=== PATIENT | male | born 1970 | race Caucasian/White ===

== ENCOUNTER → 2021-08-27 07:17 | Outpatient (CLI) | payer BC, SELFPAY ==
--- NOTE | 2021-08-27 | CA_ITS ---
APPROVED REPORT Exam: Exercise Treadmill Technologist: Julieta Gonzáles, Ht: 5 ft 10 in Wt: 242 lbs BSA: 2.26 m2 HR: 64 bpm BP: 151/100 mmHg Rhythm: NSR, NORMAL Indications: CP Medical History Medical History: Hyperlipidemia Medications: Aspirin,,,,, Tricor,,,,, Crestor,,,,, Allergies: No known drug allergies Cardiac Risk Factors: Hyperlipidemia, FHX of CAD, Stress Test Details Test: Alejandro, Exercise stress testing was performed using a modified Alejandro protocol. HR Resting HR: 75 bpm Max Heart Rate (APMHR): 169.926044 bpm Max HR Achieved: 169 bpm Target HR (85% APMHR): 143.371613 bpm % of APMHR: 100.00 Recovery HR: 99 bpm BP Resting BP: 151/100 mmHg Max BP: 164/91 mmHg Recovery BP: 137.0/91.0 mmHg ECG Resting ECG: NSR, NORMAL Clinical Exercise duration: 09:30 min Highest Stage Achieved: Exercise capacity: 10.1 METs Stress ECG Conclusion PT EXERCISED 9:30 ON ALEJANDRO PROTOCOL, GOING INTO STAGE 4. MAX HR: 169 % OF PM: 100% MAX BP: 164/91 METS: 10.1 TEST STOPPED DUE TO: SOA, FATIGUE PT HAD NO CP. ALLOWING FOR MOTION ARTIFACT. THE ST RESPONSE TO EXERCISE IS WITHIN NORMAL. NORMAL GXT. MYOVIEW IMAGES REPORTED SEPARATELY. Test Summary Stage 3 03:00 14.0 3.4 152 . . . . REST 03:44 0.0 0.0 75 . 151/100 . . Stage 1 01:00 10.0 1.7 95 . . . . Stage 1 02:00 10.0 1.7 102 . . . . Stage 1 03:00 10.0 1.7 102 . 150/ 90 . . Stage 2 01:00 12.0 2.5 114 . . . . Stage 2 02:00 12.0 2.5 119 . . . . Stage 2 03:00 12.0 2.5 120 . 155/ 88 . . Stage 3 01:00 14.0 3.4 136 . . . . Stage 3 02:00 14.0 3.4 138 . . . . Stage 3 03:00 14.0 3.4 152 . . . . Stage 4 00:30 16.0 4.2 167 . . . Stop exercise at 09:30 RECOVERY 01:00 0.0 0.0 136 . . . . RECOVERY 02:00 0.0 0.0 122 . 148/ 75 . . RECOVERY 03:00 0.0 0.0 107 . 154/ 97 . . RECOVERY 04:00 0.0 0.0 104 . 154/ 97 . . RECOVERY 05:00 0.0 0.0 101 . 164/ 91 . . RECOVERY 06:00 0.0 0.0 103 . 128/ 92 . . RECOVERY 07:00 0.0 0.0 100 . 137/ 91 . . RECOVERY 07:13 0.0 0.0 98 . 137/ 91 . . Electronically signed by : Dmitry Arita MD 08/28/2021 10:46:12
--- NOTE | 2021-08-27 07:25 | NM_ITS ---
APPROVED REPORT Exam: Nuclear Stress Test Indication: chest pain Patient Location: Outpatient Stress Tech: Julieta Gonzáles [place] Tech:Gabriella BenitezDIOGO RT(R)(N) Ht: 5 ft 10 in Wt: 240 lbs HR: 64 bpm BP: 151/100 mmHg BSA: 2.26 m2 BMI: 34.4 History: chest pain Procedure: Patient exercised on Spencer protocol 9:30 minutes and sec, resting heart rate 64 bpm, resting blood pressure 151/100 mmHg, with exercise maximum heart rate achived was 169 bpm which is 100 % of the maximum predicted heart rate and blood pressure was 164/91 mmHg. Test was stopped due to soa..fatigue. Patient denied any complaint of chest pain. Patient has good exercise capacity, achieved 10.1 METs of workload on treadmill, the blood pressure response to exercise was Adequate. Electrocardiogram Resting electrocardiogram shows sinus rhythm, with exercise there is less than 1.[address] segment depression noted from the baseline EKG. The EKG portion of the exercise Myoview is negative for ischemia. Cardiac Stress and Resting SPECT Images: Cardiac Stress and Resting SPECT images were obtained using technetium 99m Myoview 32.6 mCi stress and 10.55 mCi at rest. Gated SPECT analysis of segmental wall motion and calculation of the ejection fraction ??? prone images were also obtained. Cardiac prone images show uniform myocardial activity without segmental perfusion abnormality, computer derived ejection fraction is 57% with no regional wall motion abnormality, right ventricle is normal size and contractility. Conclusion: 1. The EKG portion of the exercise Myoview is negative for ischemia, patient has good exercise capacity 10.1 METs of workload on treadmill, the blood pressure response to exercise was adequate, there was no exercise-induced chest discomfort. 2. No scintigraphic evidence of reversible ischemia seen, computer derived ejection fraction 57% with no regional wall motion abnormality, right ventricle is normal size and contractility. 3. Likely normal exercise Myoview study. Electronically signed by : Dmitry Arita MD 08/28/2021 10:49:25
== END ==
PROVIDERS: PCP Family Medicine; Visit Provider Family Medicine
DX: R07.9 Chest pain, unspecified (principal)
CPT/HCPCS: 78452; 93017; A9502

== ENCOUNTER → 2022-10-07 23:13 | Outpatient (CLI) | payer BC, SELFPAY ==
[2022-10-07 18:11] LABS: Basophils # 0.1 K/mm3 (0-0.2); Eosinophils # 0.3 K/mm3 (0.0-0.4); Hematocrit 46.7 % (42.0-52.0); Hemoglobin 14.7 g/dL (14.1-18.0); Lymphocytes # 2.7 K/mm3 (0.7-4.5); Lymphocytes % 41.3 % (10-50); Mean Corpuscular HGB Conc 31.5 g/dL (31.8-35.4); Mean Corpuscular Hemoglobin 29.9 pg (27.0-31.2); Mean Corpuscular Volume 94.8 fl (80-94); Mean Platelet Volume 9.3 fl (7.4-10.4); Monocytes # 0.5 K/mm3 (0.1-1.0); Monocytes % 7.2 % (1.7-9.3); Neutrophils % 46.5 % (37.0-80.0); Platelet Count 386 K/mm3 (142-424); Red Blood Count 4.92 M/mm3 (4.60-6.20); Red Cell Distribution Width 13.1 % (11.5-17.5); White Blood Count 6.5 K/mm3 (4.8-10.8)
[2022-10-07 18:23] LABS: Alanine Aminotransferase 43 U/L (12-78); Albumin Level 4.3 g/dl (3.5-5.0); Albumin/Globulin Ratio 1.8 (1.1-1.8); Alkaline Phosphatase 45 U/L (38-126); Aspartate Amino Transferase 45 U/L (17-59); Bilirubin,Total 0.7 mg/dl (0.2-1.3); Blood Urea Nitrogen 19 mg/dl (9-20); Calcium 8.9 mg/dl (8.4-10.2); Carbon Dioxide 24 mmol/L (22.0-30.0); Chloride 101 mmol/L (98-107); Chol/HDL Ratio 2.3 (1-3.5); Cholesterol 123 mg/dl (140-200); Estimated Glomerular Filt Rate 78 ml/min (>60); GFR (African American) 95 ML/MIN (>60); Globulin 2.4 g/dL (1.3-3.2); Glucose 86 mg/dl (74-100); HDL Cholesterol 53 mg/dl (40-60); Sodium 143 mmol/L (136-145); Total Protein,Serum 6.7 g/dl (6.3-8.2); Triglycerides 117 mg/dl (30-150); VLDL Cholesterol 23 mg/dL (0-40)
[2022-10-07 18:54] LABS: Thyroid Stimulating Hormone 1.46 uIU/mL (0.465-4.68)
== END ==
PROVIDERS: PCP Family Medicine; Visit Provider Family Medicine
DX: E78.5 Hyperlipidemia, unspecified (principal)
CPT/HCPCS: 80053; 80061; 84443; 85025

== ENCOUNTER 2023-11-30 11:47 | Outpatient (CLI) | payer BC, SELFPAY ==
[2023-11-30 18:08] LABS: Basophils # 0.1 K/mm3 (0-0.2); Eosinophils # 0.2 K/mm3 (0.0-0.4); Eosinophils % 2.4 % (0.1-12.0); Hemoglobin 15.1 g/dL (14.1-18.0); Lymphocytes # 2.4 K/mm3 (0.7-4.5); Lymphocytes % 37.6 % (10-50); Mean Corpuscular HGB Conc 32.9 g/dL (31.8-35.4); Mean Corpuscular Hemoglobin 30.6 pg (27.0-31.2); Mean Corpuscular Volume 93.2 fl (80-94); Mean Platelet Volume 8.8 fl (7.4-10.4); Monocytes # 0.5 K/mm3 (0.1-1.0); Monocytes % 7.1 % (1.7-9.3); Neutrophils # 3.3 K/mm3 (1.8-7.8); Platelet Count 350 K/mm3 (142-424); Red Blood Count 4.94 M/mm3 (4.60-6.20); Red Cell Distribution Width 13.5 % (11.5-17.5); White Blood Count 6.3 K/mm3 (4.8-10.8)
[2023-11-30 19:24] LABS: Alanine Aminotransferase 30 U/L (12-78); Albumin Level 4.3 g/dl (3.5-5.0); Albumin/Globulin Ratio 1.7 (1.1-1.8); Alkaline Phosphatase 47 U/L (38-126); Anion Gap 11.1 mEq/L (5-15); Aspartate Amino Transferase 30 U/L (17-59); Bilirubin,Total 0.4 mg/dl (0.2-1.3); Blood Urea Nitrogen 20 mg/dl (9-20); Calcium 9.4 mg/dl (8.4-10.2); Carbon Dioxide 26 mmol/L (22.0-30.0); Chloride 109 mmol/L (98-107); Chol/HDL Ratio 3.2 (1-3.5); Cholesterol 149 mg/dl (140-200); Estimated Glomerular Filt Rate 78 ml/min (>60); GFR (African American) 94 ML/MIN (>60); Globulin 2.6 g/dL (1.3-3.2); Glucose 101 mg/dl (74-100); HDL Cholesterol 46 mg/dl (40-60); Potassium 4.1 mmoL/L (3.5-5.1); Sodium 142 mmol/L (136-145); Total Protein,Serum 6.9 g/dl (6.3-8.2); Triglycerides 89 mg/dl (30-150); VLDL Cholesterol 18 mg/dL (0-40)
[2023-11-30 19:36] LABS: Direct LDL Cholesterol 80.82 mg/dL (100-129)
[2023-11-30 19:59] LABS: Prostate Specific Ag Screen 1.4 ng/ml (0.0-4.0)
== END 2023-11-30 23:59 | disposition home or self-care (01) ==
LOC: LAB.DROPOF 12-01 11:47
PROVIDERS: PCP Family Medicine; Visit Provider Family Medicine
DX: Z00.00 Encounter for general adult medical examination without abnormal findings (principal)
CPT/HCPCS: 80053; 80061; 85025; G0103

== ENCOUNTER 2024-08-21 07:15 | Outpatient (CLI) | payer BC, SELFPAY ==
--- NOTE | 2024-08-21 07:30 | CT_ITS ---
FINAL REPORT TECHNIQUE: Thin section axial CT images of the temporal bones were obtained. Coronal reformatted images were also obtained.This study was performed with techniques to keep radiation doses as low as reasonably achievable (ALARA). Individualized dose reduction techniques using automated exposure control or adjustment of mA and/or kV according to the patient''s size were employed. CLINICAL HISTORY: left ear muffled hearing and pain COMPARISON: none FINDINGS: Right temporal bone: The middle ear space and mastoid air cells are clear. The right ossicular chain is intact. The internal auditory canal is unremarkable. Left temporal bone: There is complete opacification of the left middle ear space. There is also complete opacification of the left mastoid air cells. The appearance is suggestive of chronic mastoiditis and otitis media. The ossicular chain remains intact. The left bony inner ear structures are unremarkable. The visualized paranasal sinuses are clear. IMPRESSION: Severe left otitis media and mastoiditis, likely chronic. Reviewed, Interpreted and Dictated by Luz Zavala MD Transcribed by Carmen Roy Authenticated and [facility]
== END 2024-08-21 23:59 | disposition home or self-care (01) ==
LOC: RAD 07:17
PROVIDERS: PCP Family Medicine; Visit Provider Nurse Practitioner
DX: H66.92 Otitis media, unspecified, left ear (principal); H70.92 Unspecified mastoiditis, left ear
CPT/HCPCS: 70480

== ENCOUNTER 2024-08-31 09:06 | Outpatient (CLI) | payer BC, SELFPAY ==
[2024-08-31 09:20] VITALS: BMI 37.1
--- NOTE | 2024-08-31 09:33 | ECG_ITS ---
APPROVED REPORT Exam: Resting ECG HR:61 bpm ECG Measurements Heart Rate 61 AXES HI 150 P -2 QRSd 97 QRS 23 QT 390 T 51 QTc 394 Conclusion SINUS RHYTHM Normal ecg UNCONFIRMED REPORT Electronically signed by : Naveen Rosales MD 09/02/2024 15:00:28
[2024-08-31 11:38] LABS: Blood Urea Nitrogen 17 mg/dl (9-20); Calcium 8.6 mg/dl (8.4-10.2); Carbon Dioxide 23 mmol/L (22.0-30.0); Chloride 108 mmol/L (98-107); Creatinine Clearance Estimated 156 mL/min (50-200); Estimated Glomerular Filt Rate 88 ml/min (>60); GFR (African American) 106 ML/MIN (>60); Glucose 102 mg/dl (74-100); Sodium 140 mmol/L (136-145)
[2024-08-31 11:42] LABS: Basophils # 0.1 K/mm3 (0-0.2); Basophils % 1.3 % (0.1-2.0); Eosinophils # 0.2 Kmm3 (0.0-0.4); Eosinophils % 3.3 % (0.1-12.0); Hematocrit 42.5 % (42.0-52.0); Hemoglobin 14.3 g/dL (14.1-18.0); Lymphocytes # 2.2 K/mm3 (0.7-4.5); Lymphocytes % 34.7 % (10-50); Mean Corpuscular HGB Conc 33.6 g/dL (31.8-35.4); Mean Corpuscular Hemoglobin 30.2 pg (27.0-31.2); Mean Corpuscular Volume 89.7 fl (80-94); Mean Platelet Volume 10.6 fl (7.4-10.4); Monocytes # 0.6 K/mm3 (0.1-1.0); Neutrophils # 3.2 K/mm3 (1.8-7.8); Neutrophils % 50.5 % (37.0-80.0); Nucleated Red Blood Cells # 0 10^3/uL; Nucleated Red Blood Cells % 0 %; Platelet Count 343 K/mm3 (142-424); Red Blood Count 4.74 M/mm3 (4.60-6.20); Red Cell Distribution Width 12.6 % (11.5-17.5); Red Cell Distribution Width-SD 41.7 fL; White Blood Count 6.4 K/mm3 (4.8-10.8)
== END 2024-08-31 23:59 | disposition home or self-care (01) ==
LOC: PREOP 09:07
PROVIDERS: Nurse Anesthetist, Certified Registered; PCP Family Medicine; Visit Provider Otolaryngology
DX: Z01.810 Encounter for preprocedural cardiovascular examination (principal); Z01.812 Encounter for preprocedural laboratory examination
CPT/HCPCS: 80048; 85025; 93005

== ENCOUNTER 2024-09-05 09:15 | Day surgery (SDC) | payer BC, SELFPAY ==
[2024-08-31 11:09] VITALS: BMI 37.1
[2024-09-05] VITALS (8 sets, daily range): BP systolic 113–128; BP diastolic 71–85; PULSE 56–65; RESP 12–18; TEMP 36.1–36.6; O2SAT 93–99
[2024-09-05] MEDS: LACTATED RINGERS 1000ML 1,000 ML 50 ML IV (10:44)
--- NOTE | 2024-09-05 10:52 | EXP.ANES.CKL ---
[facility] Disclaimer: The information contained in this section may have been updated after the patient was seen, as this information can be updated by other users. Medical History HLD (hyperlipidemia) Mastoiditis Conductive hearing loss Fluid level behind tympanic membrane of left ear Eustachian tube dysfunction Hearing loss Chronic sinusitis Surgical History No significant past surgical history Family History Other Heart problem Social History Smoking Status: Never smoker alcohol intake: never substance use type: denies use current occupational status: employed Travel in the last 8 weeks: None [facility] Anesthesia Checklist Patient Identification Patient Identification: Arm Band Structural Data Admitted From: Home Planned Operative Procedure/s: Left Myringotomy with Tube Placement Consent for Planned Operative Procedure(s) Verified: Yes Verified Documents: Surgical Consent and History and Physical NPO Status Verified Time NPO: 00:00 Additional verifications Anesthesia Reactions: No Hx Blood Transfusions: No Blood Transfusion Reaction: No Airway Assessment Mallampati Score:: Class II C-Spine Mobility Assessed: Yes TMJ Mobility Assessed: Yes Dentition: Good Dentition Neurological Assessment Level of Consciousness: Awake, Alert and Appropriate Anesthesia Plan Anesthesia Risk discussed: Yes Anesthesia Plan: Verified ASA Class: II Anesthesia Type: General
[2024-09-05] MEDS: CIPRO 0.3%-DEX 0.1% OTIC SUSP 7.5ML 7.5 ML OT (11:36)
--- NOTE | 2024-09-05 11:51 | P.OP_ITS ---
Date of procedure: 09/05/24 Pre-op Diagnosis:: Chronic serous otitis media left side Post-op Diagnosis:: Chronic serous otitis media left side Procedure performed:: Left tympanostomy and tube placement Surgeon:: Rl Carlson MD CASH APPLICATIONS ANALYST:: Other Anesthesia: GETA Estimated blood loss (mL): 0 Operative findings:: Retracted tympanic membrane, serous otitis media left side Operative note:: The patient was brought to the operating room and after adequate general anesthesia the left ear was draped in the usual sterile fashion and operating microscope employed to visualize the left tympanic membrane. A tympanostomy was made in the anterior-inferior quadrant and suction employed to clear the middle ear space of effusion. T-tube was then placed and Ciprodex drops applied and the procedure concluded. All counts correct and blood loss was minimal Condition: stable Disposition: PACU Complications:: No complications
--- NOTE | 2024-09-05 11:54 | EXP.ANES.I ---
[facility] Anesthesia Record Part I Anesthesia Record I Intake, IV Amount: 200 Hydration: Adequate Estimated blood loss (mL): 0 Urine output (mL): 0 Blood Products used (#): none Blood Pressure: 113/71 SaO2: 93 Pulse Rate: 59 Airway Patency: Patent Respiratory Rate: 12 Temperature: 97.0 F Patient is:: Stable and Somnolent Stable to PACU at:: 11:50
--- NOTE | 2024-09-05 12:54 | EXP.ANES.II ---
[facility] Anesthesia Record Part II Anesthesia Record Part II Discharge Time: 12:20 Destination: Surgical Day Care (OP Surgery) PACU nurse assessment reviewed?: Yes Patient Condition:: Good Anesthesia Complications:: None Swallowing reflex intact?: Yes Airway Patency: Patent Cyanosis?: No Blood Pressure: 114/74 SaO2: 97 Respiratory Rate: 12 Pulse Rate: 56 Temperature: 97 F Mental Status: Alert & Oriented Pain level:: 0 Nausea and/or vomitting:: None Intake, IV Amount: 0 Hydration: Adequate
== END 2024-09-05 12:36 | disposition home or self-care (01) ==
PROVIDERS: PCP Family Medicine; Visit Provider Otolaryngology
PROC: (CPT 69436; principal; 2024-09-05 10:30)
DX: H65.22 Chronic serous otitis media, left ear (principal)
CPT/HCPCS: 69436; J1100; J2405; J3010; J7120

== ENCOUNTER 2024-11-30 10:33 | Outpatient (CLI) | payer BC, SELFPAY ==
[2024-11-30 15:57] LABS: Cholesterol 182 mg/dl (140-200)
[2024-12-04 10:42] LABS: Cholesterol 186 mg/dl (140-200); HDL Cholesterol 48 mg/dl (40-60); Triglycerides 116 mg/dl (30-150)
== END 2024-11-30 23:59 | disposition home or self-care (01) ==
LOC: LAB.DROPOF 12-03 10:06
PROVIDERS: PCP Nurse Practitioner Family; Visit Provider Nurse Practitioner Family
DX: E78.49 Other hyperlipidemia (principal)
CPT/HCPCS: 80061; 82465